=== PATIENT | male | born 1975 ===

== ENCOUNTER 2018-06-18 18:43 | Emergency (ER) | payer BC ==
--- NOTE | 2018-06-18 19:13 | EDPHY ---
H & P Time Seen by Provider: 06/18/18 18:50 HPI/ROS: CHIEF COMPLAINT: Headache HISTORY OF PRESENT ILLNESS: Patient traveled to a [facility] service this past weekend on Sunday when he got back he noticed that he was getting a headache which was slow in onset over the course of the day. He felt fatigued and had a little bit of blurry vision like he was dehydrated the next day, drank coffee and a lot of water. Yesterday he was very tired and took a 2 hr nap which is unusual for him. He had a brief episode of double vision yesterday but then was able to read, but the headache persisted and he took some Tylenol. Today this morning he had another short episode of double vision and continues to have a headache but it is very mild right now and only 1 or 2/10. Mostly left- sided around his eye. Not better worse with time of day or motion. Not associated with nausea or vomiting, not really better or worse with light. No double vision now. REVIEW OF SYSTEMS: Eye: HPI ENT: no sore throat or earache Cardiac: No chest pain Pulmonary: No coughing Abdomen: No vomiting or abdominal pain Musculoskeletal: No neck pain Skin: no rash Neuro: No vertigo or being off balance, no weakness or numbness in extremities. Constitutional: no fever : no urinary symptoms A comprehensive 10 point review of systems is otherwise negative aside from elements mentioned in the history of present illness. PAST MEDICAL HISTORY: Negative Family history negative for venous thromboembolism, migraine, subarachnoid or aneurysm Social history: , and son do not have his symptoms, live in the same house General Appearance: Alert and conversant, cooperative. Eyes: No scleral icterus. Pupils equal reactive extraocular motion intact. No nystagmus. ENT, Mouth: Normal mucous membranes. Normal tympanic membranes, no facial erythema swelling or tenderness to palpation over sinuses. Respiratory: Normal respiratory effort, breath sounds equal, lungs are clear to auscultation. Cardiovascular: Regular rate and rhythm. No carotid bruit. Gastrointestinal: Abdomen is soft and non tender. Neurological: Alert, face symmetric, normal motor and sensory in extremities. Normal gait, not ataxic, fluent speech, normal [id number] bilaterally. Skin: Warm and dry, no rashes. Musculoskeletal: No neck stiffness. Psychiatric: Not agitated. Emergency Department course/MDM: Patient presents with normal vital signs and a neurologic exam which does not reveal any type of focal deficit. Differential considered including but not limited to tension headache, cluster headache, carbon monoxide poisoning, sinusitis, intracranial mass, multiple sclerosis POTLINE MONITOR infection, subarachnoid, migraine, ENT infection. Symptoms minimal right now. Does not currently have double vision. Plan for noncontrast head CT, neurology referral if negative. 1950: Negative head CT per Dr. Hopper. Patient states comfortable with symptomatic treatment and Neurology Clinic referral. Warned that multiple potential sources for symptoms for example multiple sclerosis, atypical migraine, not completely excluded at this time. Smoking Status: Never smoked Constitutional: Initial Vital Signs Temperature (C) 36.8 C 06/18/18 18:46 Heart Rate 60 06/18/18 18:46 Respiratory Rate 16 06/18/18 18:46 Blood Pressure 136/91 H 06/18/18 18:46 O2 Sat (%) 98 06/18/18 18:46 O2 Delivery Mode Room Air Allergies/Adverse Reactions: No Known Allergies Allergy (Unverified 06/18/18 18:54) Home Medications: Medication Instructions Recorded NK [No Known Home Meds] 06/18/18 Medical Decision Making - Diagnostics Imaging Results: Imaging Impressions Head CT 06/18/18 19:10 Impression: Normal CT of the head. Specifically, a headache source is not identified. Results called and discussed with Dr. Colton Stout on June 18, 2018 at 1950 hours. Imaging: Discussed imaging studies w/ scarfer operator Radiologist Differential Diagnosis: Differential diagnosis considered for headache including but not limited to venous thrombosis, demyelinating disease, subarachnoid hemorrhage, migraine headache, tension headache and infectious causes such as meningitis, pharyngitis and sinusitis. Departure - Departure Disposition: Home, Routine, Self-Care Clinical Impression: Headache Qualifiers: Headache type: unspecified Headache chronicity pattern: acute headache Intractability: not intractable Qualified Code(s): R51 - Headache Condition: Good Instructions: Acute Headache (ED) Referrals: Kishor Sherman MD [Primary Care Provider] - As per Instructions Jonathan Byrnes DO [Doctor of Osteopathy] - As per Instructions (neurology referral this week)
[2018-06-18 20:16] VITALS: BP 113/74
== END 2018-06-18 20:00 | disposition home or self-care (01) ==
LOC: CED 18:43
DX: R51 Headache (principal)
CPT/HCPCS: 70450-PO